=== PATIENT | male | born 1995 | race Two or more races ===

== ENCOUNTER 2018-01-15 03:45 | Emergency (ER) | payer OTHER ==
[~2018-01-15] VITALS: Ht 170.2 cm; Wt 93.0 kg
[2018-01-15 04:00] VITALS: BP 128/77
[2018-01-15 05:27] VITALS: BP 130/79
[2018-01-15 05:28] VITALS: BP 128/77
--- NOTE | 2018-01-15 05:57 | Emergency Room Report ---
History of Present Illness General Chief Complaint: Headache Source: Patient Present Illness HPI Patient is a 22-year-old male who presented after increased right-sided headache. Patient gradual onset of symptoms. He denies any trauma. He reports having somewhat improvement in his symptoms. He denies any he reports having gradual onset. Patient denies any fever. Allergies: Coded Allergies: No Known Allergies (Unverified , 01/15/18) Patient History Reviewed Nursing Documentation: PMH: Agreed; PSxH: Agreed Nursing Documentation-PMH Past Medical History: No Stated History Review of Systems All Other Systems: negative except mentioned in HPI Physical Exam Vital Signs Date Time Temp Pulse Resp B/P (MAP) Pulse Ox O2 Delivery O2 Flow Rate FiO2 01/15/18 03:53 98.2 65 16 120/77 100 Room Air General Appearance: well appearing, no apparent distress, alert, GCS 15, non- toxic Head: normocephalic, atraumatic ENT: hearing grossly normal, normal voice Neck: full range of motion, supple Respiratory: no respiratory distress, speaking full sentences Musculoskeletal: no calf tenderness Neurologic: normal inspection, alert, oriented x3, responsive, perioperative assistant III-XII nml as tested, normal gait Psychiatric: mood/affect normal Skin: other - multiple acneiform lesions Medical Decision Making Diagnostic Impression: Primary Impression: Headache ER Course Patient presented for headache. Differential diagnoses included but was not limited to skull fracture, subarachnoid hemorrhage, meningitis, aneurysm, mass lesion, intracranial hemorrhage. The head CT was ordered due to patient's new onset headache. CT head read by radiologist showed no evidence of acute intracranial hemorrhage or mass effect. The patient does not appear to have any severe headache at this time. He does not appear to require lumbar puncture, no meningismus.The patient appears to have some evidence of acneiform lesions to scalp. Patient was advised follow -up with dermatology. Last Vital Signs Date Time Temp Pulse Resp B/P (MAP) Pulse Ox O2 Delivery O2 Flow Rate FiO2 01/15/18 05:28 98.2 85 17 128/77 100 Room Air Status: improved Disposition: HOME, SELF-CARE Condition: Stable Scripts No Active Prescriptions or Reported Meds Patient Instructions: General Headache Without Cause Ke Fuentes MD Jan 15, 2018 05:57
--- NOTE | 2018-01-15 09:40 | Diagnostic Imaging Report ---
Indication: Headache Technique: Contiguous 5 mm thick transaxial imaging of the head obtained in a Siemens Sensation [address] scanner. Soft tissue and bone windows generated. Automatic Exposure Control was utilized. Total Dose length Product (DLP): 1442.[address] Dose Index Volume (CTDIvol): 70.38 mGy Comparison: none Findings: The size and configuration of the cortical sulci, basal cisterns, and ventricles are within normal limits for age. There is no mass effect, midline shift, or edema identified. There is no evidence of acute hemorrhage or abnormal intra-axial or extra-axial fluid collections. The bones and soft tissues are unremarkable. Impression: No mass effect, edema or acute bleed. The CT scanner at [facility] is accredited by the [employer] and the scans are performed using dose optimization techniques as appropriate to a performed exam including Automatic Exposure control.
== END 2018-01-15 05:29 | disposition home or self-care (01) ==
LOC: EMR 04:00
DX: R51 Headache (principal)
CPT/HCPCS: 70450; 99283

== ENCOUNTER 2018-03-15 03:17 | Emergency (ER) | payer OTHER ==
[~2018-03-15] VITALS: Ht 172.7 cm; Wt 97.5 kg
--- NOTE | 2018-03-15 03:40 | NUR ---
ED Nurse Note: Pt walked in ER and c/o chest pain for 1 week on and off. These 2 days he feels more worse. Pt is AO x 4times, VSS, on room air no distress. JOLYNN seen Pt at bedside.
--- NOTE | 2018-03-15 03:45 | NUR ---
ED Nurse Note: Pt states his chest pain more like pressure pain, but he is not having any pain now.
[2018-03-15 03:48] VITALS: BP 128/88
--- NOTE | 2018-03-15 04:10 | Diagnostic Imaging Report ---
EXAM: XR Chest, 1 View CLINICAL HISTORY: CP TECHNIQUE: Frontal view of the chest. COMPARISON: No relevant prior studies available. FINDINGS: Lungs: Unremarkable. No consolidation. Pleural space: Unremarkable. No pneumothorax. Heart: Unremarkable. No cardiomegaly. Mediastinum: Unremarkable. Bones/joints: Unremarkable. IMPRESSION: Normal chest x-ray.
--- NOTE | 2018-03-15 04:30 | Emergency Room Report ---
History of Present Illness General Chief Complaint: Chest Pain Source: Patient Present Illness [facility] Patient presents with complaints of chest pain midsternal reports that is been off and on for the past several weeks Previously about 2 months ago he reports that he had a mild cold and felt that that could have been potentially the reason However recently with moving his arms together or trying to sit up he feels increased pain in the midsternal area Denies any cough denies any pleurisy denies any fevers denies any recent travel Allergies: Coded Allergies: No Known Allergies (Unverified , 03/15/18) Patient History Past Medical History: see triage record Pertinent Family History: none Reviewed Nursing Documentation: PMH: Agreed; PSxH: Agreed Nursing Documentation-PMH Past Medical History: No Stated History Review of Systems All Other Systems: negative except mentioned in HPI Physical Exam Vital Signs Date Time Temp Pulse Resp B/P (MAP) Pulse Ox O2 Delivery O2 Flow Rate FiO2 03/15/18 03:21 98.2 78 18 133/89 98 03/15/18 03:48 Room Air Sp02 EP Interpretation: reviewed, normal General Appearance: well appearing, no apparent distress Head: normocephalic, atraumatic Eyes: bilateral eye PERRL, bilateral eye EOMI ENT: hearing grossly normal, normal pharynx, TMs + canals normal, uvula midline Neck: full range of motion, supple, no meningismus, no bony tend Respiratory: lungs clear, normal breath sounds, no rhonchi, no respiratory distress, no retraction, no accessory muscle use Cardiovascular #1: normal peripheral pulses, regular rate, rhythm, no edema, no gallop, no JVD, no murmur Gastrointestinal: normal bowel sounds, non tender, soft, no mass, no organomegaly, non-distended, no guarding, no hernia, no pulsatile mass, no rebound Genitourinary: no CVA tenderness Musculoskeletal: normal inspection Neurologic: oriented x3, responsive, business center attendant III-XII nml as tested, motor strength/ tone normal, sensory intact Psychiatric: mood/affect normal Skin: normal color, no rash, warm/dry, palpation normal Lymphatic: normal inspection, no adenopathy Medical Decision Making Diagnostic Impression: Primary Impression: Chest pain ER Course Patient is a fairly complex patient with multiple differential to consideration including but not limited to cardiac cardiopulmonary and vascular emergencies EKG and x-ray are obtained Both within normal limits Patient resting comfortably without any acute distress I do not feel the patient's presentation is consistent with a cardiac presentation or pulmonary patient is stable for initial conservative outpatient eval EKG Diagnostic Results Rate: normal Rhythm: NSR ST Segments: no acute changes Rhythm Strip Diag. Results EP Interpretation: yes Rate: 60 Rhythm: NSR, no PVC's, no ectopy Chest X-Ray Diagnostic Results Chest X-Ray Diagnostic Results : Chest X-Ray Ordered: Yes # of Views/Limited/Complete: 1 View Indication: Chest Pain EP Interpretation: Yes Interpretation: no consolidation, no effusion, no pneumothorax Impression: No acute disease Electronically Signed by: Ronak Wright DO Last Vital Signs Date Time Temp Pulse Resp B/P (MAP) Pulse Ox O2 Delivery O2 Flow Rate FiO2 03/15/18 03:48 75 18 Room Air 03/15/18 03:48 97.8 128/88 100 Status: improved Disposition: HOME, SELF-CARE Condition: Improved Scripts No Active Prescriptions or Reported Meds Referrals: NON PHYSICIAN (PCP) [facility] Patient Instructions: Nonspecific Chest Pain Additional Instructions: Patient is provided with the discharge instructions notified to follow up with primary doctor in the next 2-3 days otherwise return to the er with any worsening symptoms. Please note that this report is being documented using [employer] technology. This can lead to erroneous entry secondary to incorrect interpretation by the dictating instrument. Ronak Wright DO Mar 15, 2018 04:30
[2018-03-15 04:33] VITALS: BP 118/79
--- NOTE | 2018-03-15 04:34 | NUR ---
ED Nurse Note: Pt cleared DC by JOLYNN. Pt is AO x 4times, VSS, on room air no distress. ID bend removed. Belongings given to Pt. DC and Meds instructions given to Pt, Pt understood well. Pt walked out unit with steady gait with girlfriend.
[2018-03-15 04:36] VITALS: BP 118/79
== END 2018-03-15 04:37 | disposition home or self-care (01) ==
LOC: EMR 03:35
DX: R07.89 Other chest pain (principal)
CPT/HCPCS: 71045; 99283

== ENCOUNTER 2018-03-19 12:38 | Emergency (ER) | payer OTHER ==
[~2018-03-19] VITALS: Ht 170.2 cm; Wt 89.8 kg
--- NOTE | 2018-03-19 13:02 | NUR ---
ED Nurse Note: patient walked into ED from home c/o stomache pain patient has been visiting ER recently for these symptoms.
[2018-03-19 13:03] VITALS: BP 129/93
[2018-03-19] MEDS ORDERED: PEPCID AC20 M2 PO (13:14)
--- NOTE | 2018-03-19 13:14 | Emergency Room Report ---
History of Present Illness General Chief Complaint: Abdominal Pain Source: Patient Present Illness HPI 22-year-old male patient presents the ER complaining of epigastric pain x1 Day. Reports symptoms began after eating and drinking food this morning. Reports that he was previously seen here for chest pain generalized chest pain, states that he then followed up with [facility] yesterday had a cardiac workup, reports that exam results were negative. Reports it is a follow-up with his primary care provider next week. Denies hx of heart disease, smoking cigarettes, OH, asthma. Denies difficulty breathing. Reports that the chest pain symptoms have since resolved however the epigastric burning sensation is now present. Reports symptoms worse when he lays down horizontally. Reports symptoms worse after eating and drinking.. Denies vomiting blood. Denies diarrhea. Denies fever, chest pain, shortness of breath. Allergies: Coded Allergies: No Known Allergies (Unverified , 03/15/18) Patient History Past Medical History: see triage record Reviewed Nursing Documentation: PMH: Agreed; PSxH: Agreed Nursing Documentation-PMH Past Medical History: No Stated History Review of Systems All Other Systems: negative except mentioned in HPI Physical Exam Vital Signs Date Time Temp Pulse Resp B/P (MAP) Pulse Ox O2 Delivery O2 Flow Rate FiO2 03/19/18 12:43 99.3 99 22 129/93 99 Room Air Sp02 EP Interpretation: reviewed, normal General Appearance: well appearing, no apparent distress, alert, GCS 15, non- toxic Head: normocephalic, atraumatic Eyes: bilateral eye normal inspection, bilateral eye PERRL ENT: hearing grossly normal, normal pharynx, no angioedema, normal voice, uvula midline, moist mucus membranes Neck: full range of motion Respiratory: lungs clear, normal breath sounds, no rhonchi, no respiratory distress, no accessory muscle use, no wheezing, speaking full sentences Cardiovascular #1: regular rate, rhythm, no edema Gastrointestinal: normal bowel sounds, non tender, soft, no mass, non-distended , no guarding, no rebound Musculoskeletal: back normal, digits/nails normal, gait/station normal, normal range of motion, non-tender Neurologic: alert, oriented x3, responsive, motor strength/tone normal, sensory intact Psychiatric: mood/affect normal Skin: no rash Medical Decision Making PA Attestation Dr. Gonzalez is my supervising Physician whom patient management has been discussed with. Diagnostic Impression: Primary Impression: Acid reflux ER Course Pt. presents to the ED c/o intermittent epigastric pain x1day. Ddx considered but are not limited to esophagitis, influenza, GERD, vomiting, OH , gastritis. Denies chest pain, shortness of breath, does not require cardiac workup at this time. Follow with primary care provider for further evaluation and treatment. Vital signs: are WNL, pt. is afebrile ER COURSE: Provided with Pepcid in the ER. Physical exam benign. No abdominal TTP. Does not require CT or labs at this time , low suspicion for appendicitis or pancreatitis. Symptoms consistent with acid reflux. Resting comfortably in chair in no acute distress, nontoxic-appearing. Followup with GI specialist. ER precautions given. DISCHARGE: Rx provided for Pepcid At this time pt is stable for d/c to home. Patient is resting, in no acute distress, nontoxic appearing. Will provide with patient care instructions and any necessary prescriptions. Patient to take medication as instructed. Care plan and follow-up instructions provided. Patient questions asked and answered. Patient instructed to follow-up with primary care provider in 3- 5 days to discuss further treatment and referral to GI specialist for evaluation. Patient states understanding and agreement to treatment plan ER precautions given. Patient instructed to return to ER immediately for any new or worsening of symptoms - Please note that this Emergency Department Report was dictated using [employer] product technology software, occasionally this can lead to erroneous entry secondary to interpretation by the dictation equipment. Last Vital Signs Date Time Temp Pulse Resp B/P (MAP) Pulse Ox O2 Delivery O2 Flow Rate FiO2 03/19/18 13:04 99 22 Room Air 03/19/18 13:03 99.3 129/93 99 Status: improved Disposition: HOME, SELF-CARE Condition: Stable Scripts Famotidine (PEPCID AC) 20 Mg Tablet 20 MG PO DAILY, #30 TAB Prov: Franklyn Dent 03/19/18 Patient Instructions: Food Choices for Gastroesophageal Reflux Disease, Adult, Heartburn, [id number] Additional Instructions: Followup with primary care provider in 3 -5 days for further treatment and referral to GI. Discuss testing for H.pylori. Keep food journal of foods eaten and times of symptom onset. Take medications as directed. Patient questions asked and answered. Drink fluids as tolerated to prevent dehydration. Take Tylenol OTC for pain, Mylanta OK. Avoid spicy foods, avoid dairy, avoid alcohol. Do not eat late night meals. Elevate head of bed when sleeping. ER precautions given, patient instructed to return to ER immediately for any new or worsening of symptoms including but not limited to chest pain, SOB, abdominal pain, blood in vomit. Franklyn Dent Mar 19, 2018 13:14
--- NOTE | 2018-03-19 13:20 | NUR ---
ED Nurse Note: Pt is cleared for discharge per ERMD. Discharge instrcution/paper/ given and explained to the patient, patient verbalized understanding. pt is alert and oriented x4, ambulated out of ED steady gait with all belongigns. pt is stable for DC. VSS. pt ID band removed
[2018-03-19 14:00] VITALS: BP 129/93
== END 2018-03-19 13:20 | disposition home or self-care (01) ==
LOC: EMR 13:05
DX: K21.9 Gastro-esophageal reflux disease without esophagitis (principal); F17.200 Nicotine dependence, unspecified, uncomplicated
CPT/HCPCS: 99281

== ENCOUNTER 2018-03-20 07:57 | Emergency (ER) | payer OTHER ==
[~2018-03-20] VITALS: Ht 170.2 cm; Wt 89.8 kg
[~2018-03-20 07:57] MED LIST: PEPCID AC20 M2 PO
[2018-03-20 08:51] VITALS: BP 136/91
--- NOTE | 2018-03-20 08:53 | NUR ---
ED Nurse Note:urine sent to labs
[2018-03-20 09:06] LABS: APPEARANCE,URINE CLEAR; BILIRUBIN, URINE NEGATIVE (NEGATIVE); COLOR,URINE PALE YELLOW; GLUCOSE, URINE (UA) NEGATIVE (NEGATIVE); KETONES,URINE NEGATIVE (NEGATIVE); LEUKOCYTE ESTERASE ,URINE NEGATIVE (NEGATIVE); NITRITE,URINE NEGATIVE (NEGATIVE); PH,URINE 6 (4.5-8.0); PROTEIN,URINE NEGATIVE (NEGATIVE); UROBILINOGEN,URINE NORMAL MG/DL (0.0-1.0)
--- NOTE | 2018-03-20 09:11 | Emergency Room Report ---
History of Present Illness General Chief Complaint: General Complaint Source: Patient, Medical Record Present Illness HPI 22-year-old male with recent diagnosis of GERD, not on any meds other than drinking Pedialyte, presents with a sensation that his lips always try and that his urine has been very clear for some reason. Any pain, any dysuria, hematuria , and reports he does not drink any unusual amounts of water, he actually drinks Pedialyte, and this is. He is just curious why his urine is always clear when he doesn't drink large quantities of water. He reports he is not any special diets and has been eating normally. Allergies: Coded Allergies: No Known Allergies (Unverified , 03/15/18) Patient History Past Medical History: see triage record Reviewed Nursing Documentation: PMH: Agreed; PSxH: Agreed Nursing Documentation-PMH Past Medical History: No Stated History Review of Systems All Other Systems: negative except mentioned in HPI Physical Exam Vital Signs Date Time Temp Pulse Resp B/P (MAP) Pulse Ox O2 Delivery O2 Flow Rate FiO2 03/20/18 08:13 99.0 74 18 136/91 97 Room Air Sp02 EP Interpretation: reviewed, normal General Appearance: no apparent distress, alert, non-toxic Head: normocephalic Eyes: bilateral eye normal inspection, bilateral eye PERRL, bilateral eye EOMI ENT: normal ENT inspection, hearing grossly normal, normal pharynx, no angioedema, normal voice, moist mucus membranes Neck: normal inspection, full range of motion, supple, supple/symm/no masses Respiratory: chest non-tender, lungs clear, normal breath sounds, chest symmetrical, palpation of chest normal Cardiovascular #1: normal peripheral pulses, regular rate, rhythm Cardiovascular #2: 2+ radial (R), 2+ radial (L) Gastrointestinal: normal inspection, non tender, soft, no mass, no guarding, no rebound Rectal: deferred Genitourinary: normal inspection, no CVA tenderness, penis normal, scrotum normal Musculoskeletal: back normal, gait/station normal, normal range of motion, non- tender, no calf tenderness Neurologic: alert, responsive, manufacturing maintenance technician III-XII nml as tested, motor strength/tone normal, sensory intact, speech normal Psychiatric: judgement/insight normal, memory normal, mood/affect normal Skin: normal color, no rash, warm/dry, normal turgor Lymphatic: no adenopathy Medical Decision Making Diagnostic Impression: Primary Impression: Chapped lips ER Course Patient appears anxious, but I do not suspect any acute illness such as hyponatremia or any abnormalities, he is on a normal diet, and his oral membranes are moist, he just has slightly chapped lips. He was also thinking that his urine is clear, which I told him is probably pretty normal. He does admit to drinking about 30-40 ounces of liquid, not always water, and has been drinking Pedialyte. Therefore I do not suspect any tried abnormalities. He'll be discharged with reassurance and recommendations to use [id number] Chapstick. Last Vital Signs Date Time Temp Pulse Resp B/P (MAP) Pulse Ox O2 Delivery O2 Flow Rate FiO2 03/20/18 08:51 99.0 74 18 136/91 97 Room Air Disposition: HOME, SELF-CARE Condition: Stable Referrals: [facility],REFERRING (PCP) DONITA TROY M.D Mar 20, 2018 09:11
[2018-03-20 09:34] VITALS: BP 136/91
--- NOTE | 2018-03-20 09:37 | NUR ---
ED Nurse Note:Patient is being discharged cleared by ER provider. discharge instruction given to the patient, patient verbalized understanding. patient a/o x4, ambulated out of Ed with steady gait, with all belongings. ID band removed.
== END 2018-03-20 09:41 | disposition home or self-care (01) ==
LOC: EMR 08:30
DX: K13.0 Diseases of lips (principal)
CPT/HCPCS: 81003; 99283

== ENCOUNTER 2018-03-22 21:05 | Emergency (ER) | payer OTHER ==
[~2018-03-22] VITALS: Ht 170.2 cm; Wt 89.8 kg
[2018-03-22 21:20] VITALS: BP 130/72
--- NOTE | 2018-03-22 21:20 | NUR ---
ED Nurse Note: Patient presents with complaints of flank pain 7/10 x 3 days .now radiating to right groin. Patient has no other complaints at this time.
--- NOTE | 2018-03-22 21:37 | Emergency Room Report ---
History of Present Illness General Chief Complaint: Abdominal Pain Source: Patient Present Illness HPI Is a 22-year-old male with no past medical history. He presents with chief complaint of right groin pain. Onset today. Yesterday he had some lower back pain. Head increased urination. Now rating to the right groin area. Denies any fever chills but denies any nausea vomiting. Mild dysuria yesterday. No discharge. No testicular pain. No mass. Pain is 7 out of 10. Nothing made it better. Nothing made it worse. Allergies: Coded Allergies: No Known Allergies (Unverified , 03/15/18) Patient History Past Medical History: none, see triage record, old chart reviewed Past Surgical History: none Pertinent Family History: none Social History: Denies: smoking Immunizations: other Reviewed Nursing Documentation: PMH: Agreed; PSxH: Agreed Nursing Documentation-PMH Past Medical History: No Stated History Review of Systems Eye: Denies: eye pain, blurred vision ENT: Denies: ear pain, nose congestion, throat swelling Respiratory: Denies: cough, shortness of breath Cardiovascular: Denies: chest pain, palpitations Gastrointestinal: Denies: abdominal pain, diarrhea, nausea, vomiting Musculoskeletal: Reports: back pain; Denies: joint pain Skin: Denies: rash Neurological: Denies: headache, numbness Endocrine: Denies: increased thirst, increased urine Hematologic/Lymphatic: Denies: easy bruising All Other Systems: negative except mentioned in HPI Physical Exam Vital Signs Date Time Temp Pulse Resp B/P (MAP) Pulse Ox O2 Delivery O2 Flow Rate FiO2 03/22/18 21:14 98.2 74 16 130/72 97 Room Air vitals normal Sp02 EP Interpretation: reviewed, normal General Appearance: well appearing, no apparent distress, alert Head: normocephalic, atraumatic Eyes: bilateral eye PERRL, bilateral eye EOMI ENT: hearing grossly normal, normal pharynx Neck: full range of motion, supple, no meningismus Respiratory: chest non-tender, lungs clear, normal breath sounds Cardiovascular #1: regular rate, rhythm, no murmur Gastrointestinal: normal bowel sounds, non tender, no mass, no organomegaly, no bruit, non-distended Musculoskeletal: back normal, gait/station normal, normal range of motion Psychiatric: mood/affect normal Skin: warm/dry Medical Decision Making Diagnostic Impression: Primary Impression: Back pain Qualified Codes: M54.5 - Low back pain ER Course Patient presents with lower back pain and groin pain. He may have had a renal stone renal colic. He does have kidney stones but no evidence of any obstruction. Urine negative. We'll discharge home. CT/MRI/US Diagnostic Results CT/MRI/US Diagnostic Results : Imaging Test Ordered: CT abdomen and pelvis Impression Read by radiologist. Bilateral nephrolithiasis. appendix normal. Last Vital Signs Date Time Temp Pulse Resp B/P (MAP) Pulse Ox O2 Delivery O2 Flow Rate FiO2 03/22/18 21:14 98.2 74 16 130/72 97 Room Air Status: improved Disposition: HOME, SELF-CARE Condition: Stable Scripts Ibuprofen* (MOTRIN*) 600 Mg Tablet 600 MG ORAL THREE TIMES A DAY, #30 TAB 0 Refills Prov: Anurag Renee MD 03/22/18 Additional Instructions: Follow up with your doctor. Return if your symptoms worsen. Anurag Renee MD Mar 22, 2018 21:37
[2018-03-22 21:45] LABS: APPEARANCE,URINE CLEAR; BILIRUBIN, URINE NEGATIVE (NEGATIVE); COLOR,URINE PALE YELLOW; GLUCOSE, URINE (UA) NEGATIVE (NEGATIVE); KETONES,URINE 1+ (NEGATIVE); LEUKOCYTE ESTERASE ,URINE NEGATIVE (NEGATIVE); NITRITE,URINE NEGATIVE (NEGATIVE); PH,URINE 7 (4.5-8.0); PROTEIN,URINE NEGATIVE (NEGATIVE); UROBILINOGEN,URINE NORMAL MG/DL (0.0-1.0)
--- NOTE | 2018-03-22 22:07 | NUR ---
ED Nurse Note: Patient resting comfortably with no complaints at this time. girlfriend at bedside. Medication for pain administered will reassess in 1 minutes.
--- NOTE | 2018-03-22 22:27 | Diagnostic Imaging Report ---
EXAM: CT Abdomen and Pelvis Without Intravenous Contrast CLINICAL HISTORY: ABD PAIN TECHNIQUE: Axial computed tomography images of the abdomen and pelvis without intravenous contrast. CTDI is 15.91 mGy and DLP is 832 mGy-cm. One or more of the following dose reduction techniques were used: automated exposure control, adjustment of the mA and/or kV according to patient size, use of iterative reconstruction technique. COMPARISON: No relevant prior studies available. FINDINGS: Lung bases: Unremarkable. ABDOMEN: Liver: Mild fatty liver. Gallbladder and bile ducts: No calcified stones. No ductal dilation. Pancreas: Unremarkable. Spleen: Unremarkable. Adrenals: Unremarkable. Kidneys and ureters: Bilateral nephrolithiasis. No obstructing ureteral stone. Stomach and bowel: No brijesh mural thickening. Nonobstructive bowel gas pattern. PELVIS: Appendix: Unremarkable appendix. Bladder: Unremarkable. Reproductive: Unremarkable. ABDOMEN and PELVIS: Intraperitoneal space: Unremarkable. Bones/joints: No acute fracture. Soft tissues: Unremarkable. Vasculature: Unremarkable. No abdominal aortic aneurysm. Lymph nodes: No enlarged lymph nodes. IMPRESSION: 1. Unremarkable appendix. 2. Bilateral nephrolithiasis. No obstructing ureteral stone.
[2018-03-22] MEDS ORDERED: IBUPROFEN600 MG ORAL (23:17)
--- NOTE | 2018-03-22 23:32 | NUR ---
ED Nurse Note: Patient clered for discharge by ERMD, patient questions aswered and reiterated by ERMD. Patient ID band removed, patient ambulatory with steady gait, no s/s of acute distress, patient accompanied by friend upon departure.
[2018-03-22 23:34] VITALS: BP 130/72
== END 2018-03-22 23:34 | disposition home or self-care (01) ==
LOC: EMR 21:41
DX: M54.5 Low back pain (principal); R10.31 Right lower quadrant pain; N20.0 Calculus of kidney
CPT/HCPCS: 74176; 81003; 99284

== ENCOUNTER → 2019-02-12 | Emergency (ER) | payer OTHER ==
[~2019-02-12] VITALS: Ht 170.2 cm; Wt 93.0 kg
[~2019-02-12] MED LIST changes: +AUGMENTIN 875-1 EAC1 ORAL; +IBUPROFEN600 MG ORAL
[2019-02-12 06:11] VITALS: BP 116/77
--- NOTE | 2019-02-12 06:20 | NUR ---
ED Nurse Note: Recieved pt from home, here with c/o right ear ache for past 2 days which is worsening, pain at 6/10, no redness or drainage noted, pt states possibly had fevers 2 days ago, denies now, pt also has c/o right arm pain, states hurt arm and wants it checked out, pt able to move extremity well, no swelling or deformity, all pulses present, pt denies cp, sob, or any other complaints.
--- NOTE | 2019-02-12 06:35 | Emergency Room Report ---
History of Present Illness General Chief Complaint: Earache Source: Patient Present Illness HPI Disclaimer: Please note that this report is being documented using [employer] technology. This can lead to erroneous entry secondary to incorrect interpretation by the dictating instrument. HPI: 23-year-old male presents for evaluation of right earache. Symptoms began 2 days ago. The patient recently got over a upper respiratory illness including nasal congestion, sore throat, subjective fevers. He is feeling better now but is complaining of fullness and sharp pain in the right ear. Denies effusion. No some muffled hearing but no significant changes in his hearing, no tinnitus, no changes in balance or coordination. No longer febrile. No history of recurrent ear infections. Allergies: Coded Allergies: No Known Allergies (Unverified , 03/15/18) Nursing Documentation-H Past Medical History: No Stated History Review of Systems All Other Systems: negative except mentioned in HPI Physical Exam Vital Signs Date Time Temp Pulse Resp B/P (MAP) Pulse Ox O2 Delivery O2 Flow Rate FiO2 02/12/19 06:11 99.0 99 18 116/77 (90) 96 Room Air General: Awake and alert, no acute distress HEENT: NC/AT. EOMI. right tympanic membrane is bulging, erythematous, opacified. Left tympanic membrane is slightly opacified but nonbulging, clear landmarks, no obvious effusion. Both tympanic membranes are intact. Moderate cerumen in the external canals bilaterally. No tenderness over the mastoids, no periauricular erythema. Resp: Normal work of breathing Skin: Intact. No abrasions, laceration or rash over the exposed skin MSK: Normal tone and bulk. Moving all extremities. No obvious deformity. Neuro: Awake and alert. Mentating appropriately Medical Decision Making Diagnostic Impression: Primary Impression: Otitis media, right ER Course 23-year-old male presents for evaluation of right-sided ear pain of 2 days duration. Appears to have an acute uncomplicated otitis media on the right side. Will be treated with Augmentin for 7 days. Follow-up with his PMD. He is well-appearing and arrives with stable vital signs. Stable for outpatient treatment and follow-up. Discussed reasons to return to the emergency department. He understands and agrees with this treatment plan. Last Vital Signs Date Time Temp Pulse Resp B/P (MAP) Pulse Ox O2 Delivery O2 Flow Rate FiO2 02/12/19 06:11 99.0 99 18 116/77 (90) 96 Room Air Disposition: HOME, SELF-CARE Condition: Stable Scripts Amoxicillin/Potassium Clav 875-125* (AUGMENTIN 875-125 TABLET*) 1 Each Tablet 1 TAB ORAL TWICE A DAY for 7 Days, #14 TAB Prov: Mert Naranjo MD 02/12/19 Referrals: NON PHYSICIAN (PCP) Trevor Farias [facility]. [facility] Patient Instructions: Otitis Media, Adult Additional Instructions: Take the antibiotics as prescribed. Keep the ear clean and dry as best as you are able. Follow-up with your doctor in 2 to 3 days. Return with any new or worsening symptoms. Mert Naranjo MD Feb 12, 2019 06:35
== END | disposition home or self-care (01) ==
LOC: EMR 06:30
DX: H66.91 Otitis media, unspecified, right ear (principal)
CPT/HCPCS: 99282

== ENCOUNTER 2019-12-02 16:49 | Emergency (ER) | payer OTHER ==
[~2019-12-02] VITALS: Ht 170.2 cm; Wt 92.5 kg
--- NOTE | 2019-12-02 17:06 | NUR ---
ED Nurse Note: Pt ambulated to ed c/o right flank pain x 2 days with nausea. pt states frequent urination and dry mouth. pt was able to go to restroom and provide urine sample. pt placed in room
[2019-12-02 17:08] VITALS: BP 137/85
--- NOTE | 2019-12-02 17:15 | NUR ---
ED Nurse Note: urine/blood sent to lab
--- NOTE | 2019-12-02 17:16 | NUR ---
ED Nurse Note: Pt reports have history of kidney stones
[2019-12-02 17:32] LABS: BASOPHILS % (AUTO) 1.7 % (0.0-2.0); EOSINOPHILS % (AUTO) 1.2 % (0.0-3.0); HEMATOCRIT 44.5 % (42.0-52.0); HEMOGLOBIN 15.1 G/DL (14.2-18.0); LYMPHOCYTES % (AUTO) 21.3 % (20.0-45.0); MEAN CORPUSCULAR VOLUME 87 FL (80-99); MONOCYTES % (AUTO) 7.9 % (1.0-10.0); PLATELET COUNT 262 K/UL (150-450); RED BLOOD COUNT 5.09 M/UL (4.70-6.10); RED CELL DISTRIBUTION WIDTH 11.3 % (11.6-14.8); WHITE BLOOD COUNT 11.6 K/UL (4.8-10.8)
[2019-12-02 17:34] LABS: APPEARANCE,URINE CLEAR; BILIRUBIN, URINE NEGATIVE (NEGATIVE); COLOR,URINE PALE YELLOW; GLUCOSE, URINE (UA) NEGATIVE (NEGATIVE); KETONES,URINE NEGATIVE (NEGATIVE); LEUKOCYTE ESTERASE ,URINE NEGATIVE (NEGATIVE); NITRITE,URINE NEGATIVE (NEGATIVE); PH,URINE 6 (4.5-8.0); PROTEIN,URINE NEGATIVE (NEGATIVE); UROBILINOGEN,URINE NORMAL MG/DL (0.0-1.0)
--- NOTE | 2019-12-02 17:35 | NUR ---
ED Nurse Note: pt sent to CT
--- NOTE | 2019-12-02 17:39 | Emergency Room Report ---
History of Present Illness General Chief Complaint: Abdominal Pain Source: Patient Present Illness HPI Disclaimer: Please note that this report is being documented using [employer] technology. This can lead to erroneous entry secondary to incorrect interpretation by the dictating instrument. HPI: 24-year-old male history of kidney stones presents for right-sided abdominal pain. He states he has had right-sided flank and abdominal pain for the last 2 days. Intermittent. Currently not experiencing pain but at worst about 3 out of 10. Reports constipation with polyuria polydipsia. No dysuria. No vomiting. No fevers. Currently not on any medications. Denies any past medical history. 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 Patient History Reviewed Nursing Documentation: PMH: Agreed; PSxH: Agreed Nursing Documentation-PMH Past Medical History: No Stated History Review of Systems All Other Systems: negative except mentioned in HPI Physical Exam Vital Signs Date Time Temp Pulse Resp B/P (MAP) Pulse Ox O2 Delivery O2 Flow Rate FiO2 12/02/19 17:00 98.4 102 20 137/85 (102) 94 Room Air Sp02 EP Interpretation: reviewed, normal General Appearance: well appearing, no apparent distress Head: normocephalic, atraumatic Eyes: bilateral eye PERRL, bilateral eye EOMI ENT: hearing grossly normal, moist mucus membranes Neck: full range of motion, supple Respiratory: lungs clear, normal breath sounds, no rhonchi, no respiratory distress, no retraction, no wheezing Cardiovascular #1: normal peripheral pulses, no murmur, tachycardia - Heart rate 102 Gastrointestinal: non tender, soft, non-distended, no guarding Neurologic: alert, oriented x3, no focal defects Skin: normal color, warm/dry Medical Decision Making Diagnostic Impression: Primary Impression: Abdominal pain ER Course MDM: Differential included but not limited to appendicitis, kidney stone, constipation to name a few Clinical course-IV, laboratory studies were sent. Laboratory studies showed a white blood cell count of 11,000 electrolytes within normal limits glucose normal. Urinalysis showed no evidence of infection. CT scan of the abdomen pelvis completed showed no acute inflammatory pathology. No evidence of hydronephrosis. On my reassessment patient remained pain-free. His abdomen was nontender nondistended. Low suspicion for surgical abdominal disease. At this time I deemed patient stable for discharge home. Recommended follow-up with PMD. Return precautions were given. Labs - Laboratory Tests Test 12/02/19 17:07 White Blood Count 11.6 K/UL (4.8-10.8) H Red Blood Count 5.09 M/UL (4.70-6.10) Hemoglobin 15.1 G/DL (14.2-18.0) Hematocrit 44.5 % (42.0-52.0) Mean Corpuscular Volume 87 FL (80-99) Mean Corpuscular Hemoglobin 29.7 PG (27.0-31.0) Mean Corpuscular Hemoglobin Concent 34.1 G/DL (32.0-36.0) Red Cell Distribution Width 11.3 % (11.6-14.8) L Platelet Count 262 K/UL (150-450) Mean Platelet Volume 7.7 FL (6.5-10.1) Neutrophils (%) (Auto) 68.0 % (45.0-75.0) Lymphocytes (%) (Auto) 21.3 % (20.0-45.0) Monocytes (%) (Auto) 7.9 % (1.0-10.0) Eosinophils (%) (Auto) 1.2 % (0.0-3.0) Basophils (%) (Auto) 1.7 % (0.0-2.0) Urine Color Pale yellow Urine Appearance Clear Urine pH 6 (4.5-8.0) Urine Specific [place] 1.005 (1.005-1.035) Urine Protein Negative (NEGATIVE) Urine Glucose (UA) Negative (NEGATIVE) Urine Ketones Negative (NEGATIVE) Urine Blood Negative (NEGATIVE) Urine Nitrite Negative (NEGATIVE) Urine Bilirubin Negative (NEGATIVE) Urine Urobilinogen Normal MG/DL (0.0-1.0) Urine Leukocyte Esterase Negative (NEGATIVE) Sodium Level 139 MMOL/L (136-145) Potassium Level 3.4 MMOL/L (3.5-5.1) L Chloride Level 102 MMOL/L (98-107) Carbon Dioxide Level 23 MMOL/L (21-32) Anion Gap 14 mmol/L (5-15) Blood Urea Nitrogen 10 mg/dL (7-18) Creatinine 0.8 MG/DL (0.55-1.30) Estimated Glomerular Filtration Rate > 60 mL/min (>60) Glucose Level 104 MG/DL (74-106) Calcium Level 9.0 MG/DL (8.5-10.1) Total Bilirubin 1.8 MG/DL (0.2-1.0) H Direct Bilirubin 0.3 MG/DL (0.0-0.3) Aspartate Amino Transferase (AST) 28 U/L (15-37) Alanine Aminotransferase (ALT) 47 U/L (12-78) Alkaline Phosphatase 70 U/L (46-116) Total Protein 8.4 G/DL (6.4-8.2) H Albumin 4.6 G/DL (3.4-5.0) Globulin 3.8 g/dL Albumin/Globulin Ratio 1.2 (1.0-2.7) Lipase 118 U/L (73-393) On reevaluation: Patient in no acute distress resting comfortably Plan-discharge home follow-up PMD. Return precautions given. Last Vital Signs Date Time Temp Pulse Resp B/P (MAP) Pulse Ox O2 Delivery O2 Flow Rate FiO2 12/02/19 17:08 102 20 Room Air 12/02/19 17:08 98.4 137/85 94 Status: improved Disposition: HOME, SELF-CARE Condition: Improved Raleigh Lora M.D. Dec 02, 2019 17:39
--- NOTE | 2019-12-02 17:45 | NUR ---
ED Nurse Note: Pt returned from CT
[2019-12-02 17:56] LABS: ANION GAP 14 mmol/L (5-15); BLOOD UREA NITROGEN 10 mg/dL (7-18); CARBON DIOXIDE 23 MMOL/L (21-32); CHLORIDE 102 MMOL/L (98-107); CREATININE 0.8 MG/DL (0.55-1.30); POTASSIUM 3.4 MMOL/L (3.5-5.1); SODIUM 139 MMOL/L (136-145)
[2019-12-02 18:10] LABS: ALANINE AMINOTRANSFERASE 47 U/L (12-78); ALBUMIN 4.6 G/DL (3.4-5.0); ALBUMIN/GLOBULIN RATIO 1.2 (1.0-2.7); ALKALINE PHOSPHATASE 70 U/L (46-116); ASPARTATE AMINO TRANSFERASE 28 U/L (15-37); BILIRUBIN,TOTAL 1.8 MG/DL (0.2-1.0)
[2019-12-02 18:12] LABS: BILIRUBIN,DIRECT 0.3 MG/DL (0.0-0.3)
--- NOTE | 2019-12-02 18:14 | Diagnostic Imaging Report ---
History: PAIN Exam: CT ABDOMEN + PELVIS Without Contrast Technique more: CTDI is 10.1 mGy and DLP is 538.3 mGy-cm. Technique more: One or more of the following dose reduction techniques were used: automated exposure control, adjustment of the mA and/or kV according to patient size, use of iterative reconstruction technique. Comparison: 03/22/2018 FINDINGS: The lung bases are clear. Small nonobstructing right and left intrarenal stone without hydronephrosis, perinephric stranding or ureteral or bladder stone identified. Abdominal solid organs, gallbladder and abdominal aorta otherwise appear within limits on noncontrast imaging. No bowel dilation or free air. Normal caliber appendix without secondary signs. The bladder appears within limits. No free fluid. IMPRESSION: Small nonobstructing right and left intrarenal stone without hydronephrosis, perinephric stranding or ureteral or bladder stone identified. No evidence of acute process on noncontrast imaging.
[2019-12-02 18:38] VITALS: BP 122/81
--- NOTE | 2019-12-02 18:38 | NUR ---
ER DISCHARGE NOTE: Patient is cleared to be discharged per ERMD, pt is aox4, on room air, with stable vital signs. pt was given dc and prescription instructions, pt was able to verbalize understanding, pt id band and iv site removed without complications. pt is able to ambulate with steady gait. pt took all belongings.
== END 2019-12-02 18:39 | disposition home or self-care (01) ==
LOC: EMR 17:05
DX: R10.9 Unspecified abdominal pain (principal); R00.0 Tachycardia, unspecified; N20.0 Calculus of kidney
CPT/HCPCS: 36415; 74176; 80053; 81003; 82248; 83690; 85025; Z7502; 99284

== ENCOUNTER 2019-12-09 00:30 | Emergency (ER) | payer OTHER ==
[~2019-12-09] VITALS: Ht 170.2 cm; Wt 92.5 kg
[2019-12-09 00:48] VITALS: BP 135/89
--- NOTE | 2019-12-09 00:50 | NUR ---
ED Nurse Note: walked in to ed c/o right sided pelvic pain onset 3 days ago that got worse. pt states he recalls coughing 3 days ago and developed the pain since then. denies any urinary problems at this time. vss, nad, aaox4, ambulatory, urine collected and sent to lab
--- NOTE | 2019-12-09 00:56 | Emergency Room Report ---
History of Present Illness General Chief Complaint: Pelvic Pain Source: Patient, Medical Record Present Illness HPI This is a 24-year-old male with a history of kidney stone. Presents with complaint of right flank pain. Onset about a week. He was here last week for the same thing. CT scan showed intrarenal stones bilaterally. Labs unremarkable. Urinalysis normal. He said he was doing better until today when he started getting more pain. Pain is to the right flank rating to the groin. Pain achy in nature. Pain is 5 out of 10. No fever chills no nausea no vomiting. Nothing made it better. Nothing made it worse. Has not taken any for this. No hematuria. Allergies: Coded Allergies: No Known Allergies (Unverified , 03/15/18) COVID-19 Screening Contact w/high risk pt: No Experienced COVID-19 symptoms?: No COVID-19 Testing performed PRODUCTION ILLUSTRATOR: No Patient History Past Medical History: see triage record, old chart reviewed Past Surgical History: none Pertinent Family History: none Social History: Denies: smoking Immunizations: other Reviewed Nursing Documentation: PMH: Agreed; PSxH: Agreed Nursing Documentation-PMH Past Medical History: No Stated History Review of Systems Eye: Denies: eye pain, blurred vision ENT: Denies: ear pain, nose congestion, throat swelling Respiratory: Denies: cough, shortness of breath Cardiovascular: Denies: chest pain, palpitations Gastrointestinal: Denies: abdominal pain, diarrhea, nausea, vomiting Musculoskeletal: Denies: back pain, joint pain Skin: Denies: rash Neurological: Denies: headache, numbness Endocrine: Denies: increased thirst, increased urine Hematologic/Lymphatic: Denies: easy bruising All Other Systems: negative except mentioned in HPI Physical Exam Vital Signs Date Time Temp Pulse Resp B/P (MAP) Pulse Ox O2 Delivery O2 Flow Rate FiO2 12/09/19 00:30 99.0 85 18 132/96 (108) 99 Room Air Vitals normal Sp02 EP Interpretation: reviewed, normal General Appearance: well appearing, no apparent distress, alert Head: normocephalic, atraumatic Eyes: bilateral eye PERRL, bilateral eye EOMI ENT: hearing grossly normal, normal pharynx Neck: full range of motion, supple, no meningismus Respiratory: chest non-tender, lungs clear, normal breath sounds Cardiovascular #1: regular rate, rhythm, no murmur Gastrointestinal: normal bowel sounds, non tender, no mass, no organomegaly, no bruit, non-distended Musculoskeletal: back normal, normal range of motion, gait/station normal Psychiatric: mood/affect normal Medical Decision Making Diagnostic Impression: Primary Impression: Acute flank pain ER Course Patient presents with acute flank pain. He may have had passed a very small kidney stone. There is no hematuria. This could also be musculoskeletal pain. No evidence of acute abdomen. Will discharge home. Last Vital Signs Date Time Temp Pulse Resp B/P (MAP) Pulse Ox O2 Delivery O2 Flow Rate FiO2 12/09/19 00:48 98.8 78 18 135/89 99 Room Air Status: improved Disposition: HOME, SELF-CARE Condition: Stable Scripts Ibuprofen* (MOTRIN*) 600 Mg Tablet 600 MG ORAL Q6H PRN for For Pain, #30 TAB 0 Refills Prov: Anurag Renee MD 12/09/19 Referrals: [facility],REFERRING (PCP) Additional Instructions: Follow-up with your doctor in 7 days. Return if symptoms worsen. Anurag Renee MD Dec 09, 2019 00:56
[2019-12-09 01:14] LABS: APPEARANCE,URINE CLEAR; BILIRUBIN, URINE NEGATIVE (NEGATIVE); COLOR,URINE PALE YELLOW; GLUCOSE, URINE (UA) NEGATIVE (NEGATIVE); KETONES,URINE NEGATIVE (NEGATIVE); LEUKOCYTE ESTERASE ,URINE NEGATIVE (NEGATIVE); NITRITE,URINE NEGATIVE (NEGATIVE); PH,URINE 6 (4.5-8.0); PROTEIN,URINE NEGATIVE (NEGATIVE); UROBILINOGEN,URINE NORMAL MG/DL (0.0-1.0)
[2019-12-09 01:20] VITALS: BP 132/78
--- NOTE | 2019-12-09 01:20 | NUR ---
ER DISCHARGE NOTE: Patient is cleared to be discharged per ERMD, pt is aox4, on room air, with stable vital signs. pt was given dc instructions, pt was able to verbalize understanding, pt id band removed without complications. pt is able to ambulate with steady gait. pt took all belongings.
[2019-12-09] MEDS ORDERED: IBUPROFEN600 M1 ORAL (01:22)
== END 2019-12-09 01:20 | disposition home or self-care (01) ==
LOC: EMR 00:53
DX: R10.9 Unspecified abdominal pain (principal); Z87.442 Personal history of urinary calculi
CPT/HCPCS: 81003; Z7502; 99282